=== PATIENT | female | born 1960 | race Caucasian/White ===

== ENCOUNTER 2018-01-22 14:49 | Emergency (ER) | END 2018-01-22 16:42 | disposition home or self-care (01) ==

== ENCOUNTER 2019-01-15 19:59 | Emergency (ER) | payer OTHER ==
[~2019-01-15] VITALS: Ht 157.5 cm; Wt 79.7 kg
[~2019-01-15 19:59] MED LIST: AZIT250T PO; ERTU5TAB PO; IBUP-1542 PO; LOSA1TAB22 PO; METF-849 PO; ONDA4TAB14 PO; PANT40TA4 PO; PROM5SYR2 PO
[2019-01-15 20:36] VITALS: Ht 157.5 cm; Wt 79.7 kg
[2019-01-15] MEDS ORDERED: morphine 4 MG/ML VIAL IV STA (21:03)
[2019-01-15] MEDS ORDERED: ONDANSETRON 4 MG INJ IV STA (21:03)
[2019-01-15 22:53] VITALS: BP 124/64; PULSE 70; RESP 18
== END 2019-01-15 22:54 | disposition home or self-care (01) ==
LOC: E/R 19:59
DX: R10.13 Epigastric pain (principal); R11.2 Nausea with vomiting, unspecified; I10 Essential (primary) hypertension; E11.9 Type 2 diabetes mellitus without complications
CPT/HCPCS: 36415; 76705; 80053; 81001; 83690; 84484; 85025; 93005; 96374; 96375; J2270; J2405; Z7502